=== PATIENT | female | born 1985 | race Caucasian/White ===

== ENCOUNTER 2024-07-15 21:36 | Emergency (ER) | payer OTHER, SELFPAY ==
[2024-07-15 21:36] VITALS: BP 128/76
[2024-07-15 23:41] VITALS: BP 108/79
--- NOTE | 2024-07-16 00:24 | ED.GENMED ---
History of Present Illness
General
Chief Complaint: Medication Reaction
Source: patient
Exam Limitations: none
Time Seen by Provider: 07/16/24 00:12
History of Present Illness
History of Present Illness:
See MDM
Past History
Past History
ED Past Medical History: None
ED Past Surgical History: None
Social History
Tobacco: Non-smoker
Alcohol: None
Phy Exam
Physical Exam
Physical Exam:
See MDM
Course
Vital Signs
Initial and Last Documented VS:
Initial Vital Signs
Temp Pulse Resp BP Pulse Ox
98.9 F 88 24 128/76 100
07/15/24 21:36 07/15/24 21:36 07/15/24 21:36 07/15/24 21:36 07/15/24 21:36
Last Documented Vital Signs
Temp Pulse Resp BP Pulse Ox
98.9 F 75 16 108/79 100
07/15/24 21:36 07/15/24 23:41 07/15/24 23:41 07/15/24 23:41 07/15/24 23:41
MDM/Problems Addressed
Differential Diagnosis Includes:
HPI and MDM Narrative:
39-year-old female presenting for accidental ingestion. She accidentally took her dogs 300 mg gabapentin and 75 mg amitriptyline. This occurred 3 to 4 hours ago. Patient got nervous. On my evaluation, patient states she feels comfortable going
home. I offered EKG to look for any EKG changes from [facility]. Patient declined. patient denies purposeful self-injury feels comfortable going home
Physical exam
General: Well appearing and non-toxic
HEENT: protecting airway
Neck: appears supple
CV: No evidence of cyanosis. Regular rate and rhythm
Resp: No accessory muscle use
Abd: Non-distended
Extremities: No deformities
Neuro: alert
Psych: Normal affect
Skin: Intact
Problems Addressed including Acute and Chronic Conditions affecting care:
1. Accidental drug ingestion
Acuity: acute
Prognosis: stable
Details: Given the dosages of the gabapentin and amitriptyline, doubt significant injury
Testing considered: EKG
Drug therapy (if applicable): OTC meds, please see d/c instruction regarding Rx drugs
Amount and/or Complexity of Data Reviewed
Clinical info obtained from: Patient
External data reviewed: N/A
Labs I independently reviewed (but not limited to): N/A
Radiology: N/A
Pulse Ox: not hypoxic
EKG independently reviewed: N/A
Prepress Manager: N/A
Critical Care: N/A
Risk of Complication:
Social Determinants of health: Good social support
Discussed with other providers: N/A
Escalation of Care includes Admit/Obs: After being observed in the Emergency Department, pt stable for discharge.
Occasional wrong word or 'sound a like' substitutions may have occurred due to the inherent limitations of voice recognition software. Read the chart carefully and recognize, using context, where substitutions have occurred.
*Critical Care Note
Total Time (30-74mins, 75-104mins- exclusive of procedures): Not Applicable
ED Attending Note
-
Portions of this chart may have been created with voice recognition software.� Occasional wrong word or��sound alike� substitutions may have occurred due to the inherent limitations of voice recognition software.
Discharge Plan
Departure
Patient Disposition: Home (Routine Discharge)
Date of Disposition: 07/16/24
Time of Disposition: 00:24
Patient with high blood pressure during this ER visit?: No
Discharge Problem:
Accidental drug ingestion
Prescriptions:
No Action
PNV cmb#95-ferrous fumarate-FA [] 1 EACH tablet
1 1 each PO DAILY
acetaminophen 325 MG tablet
650 mg PO Q4HPRN PRN (Reason: mild pain) 0RF
sennosides-docusate sodium 1 TABLET tablet
1 tab PO DAILYPRN PRN (Reason: constipation) 0RF
ibuprofen 600 MG tablet
600 mg PO Q6HPRN PRN (Reason: cramps) Qty: 30 0RF
simethicone [Gas Relief 80 (simethicone)] 80 MG tablet,chewable
80 mg PO TIDPRN PRN (Reason: flatulence) 0RF
Referrals:
UNKNOWN - PT DOES,NOT KNOW [Family Provider] -
Activity Restrictions/Additional Instructions:
Please return for any worsening symptoms.
You may return at any time if you have further concerns.
Please follow up with your doctor at the first available appointment, preferably this week.
Thank you for choosing [facility].
Interventions
Interventions:
*Risk Screen - Suicide Last Done: 07/15/24 21:36
*General Assessment Last Done: 07/15/24 23:42
*Neglect/Abuse Screening Last Done: 07/15/24 21:36
ED- Fall Risk Assessment Last Done: 07/15/24 23:42
*ED COVID-19 Vaccine History Last Done: 07/15/24 23:42
ED-Skin Assessment Last Done: 07/15/24 23:42
ED- Pulmonary Assessment Last Done: 07/15/24 23:42
Discharge Date and Time
Print Language: HUNGARIAN
== END 2024-07-16 01:01 | disposition home or self-care (01) ==
LOC: EMR 21:36
PROVIDERS: EMERGENCY PHYSICIAN Student in an Organized Health Care Education/Training Program
DX: T42.6X1A Poisoning by other antiepileptic and sedative-hypnotic drugs, accidental (unintentional), initial encounter (principal); T43.011A Poisoning by tricyclic antidepressants, accidental (unintentional), initial encounter; R45.0 Nervousness
CPT/HCPCS: 99282